=== PATIENT | male | born 1925 | race Caucasian/White ===

== ENCOUNTER 2016-12-07 15:14 | Inpatient (IN) ==
--- NOTE | 2016-12-07 23:54 | Hospitalist History & Physical ---
Assessment and Plan (1) Altered mental status Status: Acute Current Visit: Yes (2) Bacterial meningitis Status: Acute Current Visit: Yes (3) Parkinsons disease Status: Acute Current Visit: Yes (4) Intraventricular hemorrhage Status: Acute Assessment and plan: My plan for this patient will be admitting him to our service. I will continue IV antibiotics as started by [facility]. He was on ampicillin cefepime and vancomycin. We need to get the culture results back from [facility]. We will continue tube feeds. Patient is a DNR. The wants to give him additional more time to see if he can recover he has not spoken or made any meaningful response in 3 days. Current Visit: No History of Present Illness Chief complaint: Transfer from [facility] History of present illness: Mr. Lopez is a 89 year old male with past medical history significant for hypertension and Parkinson's disease was his normal state of health till several days ago. Apparently patient failed did hit his head. They did not seek medical attention he did not seem to have any deficits. He followed up with his primary care provider Dr. Richey. She thought that he was having symptoms of the hydration recommended he come over to our hospital for further evaluation. Upon have an initial CT scan it was shown that he had a small intraventricular hemorrhage. He was subsequently transferred to [facility] for further evaluation. Patient was sent from to [facility] from our emergency room. They are neurosurgery evaluated him and did not see a surgical intervention necessary. He started spiking a fever and mentally he decompensated. He has not spoken a word in 3 days. Per review of the records it was sent with the patient they felt that he had bacterial meningitis. They were treating him with antibiotics and his white count was coming down and his fever was defervescing. The imaging reports indicate that he he had a CT scan of his chest that showed no signs of consolidation or pneumonia CT scan of his head showed no outside changes. He had a EEG that showed mild cerebral dysfunction without electric form discharges his CSF stain showed many white blood cells but no organism I do not have a cell count from his LP. They put him on amp penicillin cefepime and vancomycin. The records indicates that his cryptococcal antigen was negative and his HSV PCR was negative they felt that his altered mental status was likely secondary to his bacterial encephalopathy. His mri with contrast showed no sequela of meningitis or encephalitis patient is a DNR and I confirmed this with his . Patient was accepted his transfer from [facility] as a convenience for his family. Home Medications Medication Instructions Recorded Confirmed Type Aspirin [Ecotrin] 81 mg PO DAILY 11/30/16 11/30/16 History Carbidopa/Levodopa 25-100 [Sinemet 2 tablet PO TID 11/30/16 11/30/16 History 25-100] Finasteride 5 mg PO DAILY 11/30/16 11/30/16 History Folic Acid Tab 0.4 mg PO DAILY 11/30/16 11/30/16 History Timolol 0.5% Oph Soln [Timoptic 1 drop BOTH EYES BID 11/30/16 11/30/16 History 0.5%] hydroCHLOROthiazide 12.5 mg PO DAILY 11/30/16 11/30/16 History [Hydrochlorothiazide] Medical,Surgical,& Family Hx - Medical History Cardio: History of: Hypertension Neurology: History of: Dementia, Parkinson's Disease, TIA HEENT: History of: Ear Problem, Eye Problem, Glaucoma Genitourinary: History of: Prostate Problems (Prostate Enlargement) - Surgical History Abdominal Surgeries: Surgical HX of: Cholecystectomy, Hernia Repair - Family History Family History: Reports;: Family Cancer, Family Heart Disease, Family Hypertension - Social History Smoking Status: Never smoker Frequency of Alcohol Use: None Type of Drug Use: None ROS unobtainable: due to mental status Exam - Constitutional Vitals: Period Temp Pulse Resp BP Sys/Dozier Pulse Ox Last 24 Hr 20-20 General appearance: normal weight - Head Head exam: Present: normal inspection - Eye Pupils: Present: NAEDR (Sluggish) - ENT ENT exam: Present: normal exam - Neck Neck exam: Present: normal inspection - Respiratory Respiratory exam: Present: clear to auscultation bilaterally - Cardiovascular Cardiovascular exam: Present: regular rate and rhythm - GI/Abdominal GI/Abdominal exam: Present: normal bowel sounds - Extremities Exam Extremities exam: Present: normal inspection - Back Exam Back exam: Present: normal inspection - Neurological Exam Neurological exam: Present: altered - Skin Skin exam: Present: normal color Results - Labs Labs: Labs from [facility] displayed white blood cell count 13.1 hemoglobin 13.9 hematocrit 40.2 platelets 219 sodium 140 potassium 3.1 chloride 97 bicarb 28 BUN 18 calcium 8.5 glucose 150 B12 greater than 2000 magnesium 1.6 phosphorus 2.0
[2016-12-08] MEDS: AMPICILLIN INJ 2,000 MG in SODIUM CHLORIDE 0.9% 100 ML IV SCH ×4 (01:42→18:35)
[2016-12-08] MEDS ORDERED: CEFEPIME 2,000 MG in SODIUM CHLORIDE 0.9% 100 ML IV SCH ×2 (02:00→14:00)
[2016-12-08] MEDS: VANCOMYCIN INJ 1,000 MG in SODIUM CHLORIDE 0.9% 250 ML IV SCH ×2 (03:55→21:12)
[2016-12-08 05:29] LABS: Basophils # 0.1 10*3/uL (0.0-0.2); Basophils % 0.7 % (0.0-0.8); Eosinophils # 0.7 10*3/uL (0.0-0.87); Eosinophils % 5.8 % (0.00-10.9); Hematocrit 39.4 VOL% (42.0-52.0); Hemoglobin 14.1 GM/DL (14.0-18.0); Immature Granulocytes % 0.5 %; Immature Granulocytes Absolute 0.06 #; Lymphocytes # 1.6 10*3/uL (1.4-4.0); Lymphocytes % 13.7 % (21.2-54.2); Mean Corpuscular HGB Conc 35.8 GM/DL (32-36); Mean Corpuscular Hemoglobin 32 PG (27-34); Mean Corpuscular Volume 89.3 FL (87-102); Mean Platelet Volume 9.3 FL (9.6-12.0); Monocytes # 1.1 10*3/uL (0.11-0.8); Monocytes % 9.5 % (1.7-12.7); Neutrophils % 69.8 % (38.7-73.9); Platelet Count 243 T/CUMM (130-400); Red Blood Count 4.41 MC/CUMM (3.8-5.5); White Blood Count 11.5 T/CUMM (4-12)
[2016-12-08 06:14] LABS: Albumin 2.7 G/DL (3.4-5.0); Bilirubin,Total 0.8 MG/DL (0.2-1.0); Calcium 8.4 MG/DL (8.5-10.1); Osmolality,Calculated 275.8 MOS/KG (273-304); Potassium 3.3 MMOL/L (3.5-5.1); Total Protein 5.3 G/DL (6.4-8.3)
--- NOTE | 2016-12-08 06:45 | CT Report ---
CT head/brain wo con Indication: AMS Comparison: CT brain dated November 30, 2016 Technique: Multiple axial tomographic images of the brain were obtained without the use of intravenous contrast. Findings: Moderate global volume loss present. Moderate periventricular and subcortical hypoattenuation noted which is nonspecific but consistent with chronic microvascular ischemic change. Demyelinating process and vasculitis less likely considerations. Moderate prominence of the bilateral lateral ventricles appears unchanged. There is evolution of acute hemorrhage demonstrated within the bilateral occipital horns on prior exam with minimal remaining within the left occipital horn. No new area of hemorrhage is visualized. Midline structures are nondisplaced. Small probable mucous retention cyst within the right maxillary sinus. Patchy opacification of ethmoid air cells. Left mastoid effusion present. IMPRESSION: Moderate prominence of the bilateral lateral ventricles appears unchanged. There is evolution of acute hemorrhage demonstrated within the bilateral occipital horns on prior exam with minimal remaining within the left occipital horn. No new area of hemorrhage is visualized. Probable chronic microvascular ischemic change and volume loss. There is paranasal sinus disease and left mastoid effusion. Clinically correlate for mastoiditis. The CT exam was performed using one or more of the following dose reduction techniques: Automated exposure control, adjustment of the mA and/or kV according to patient size, or use of iterative reconstruction technique. PROCEDURE INTERPRETED AT [facility] DEPARTMENT OF RADIOLOGY Final Report Signed by: Dr Mohsen Henson
--- NOTE | 2016-12-08 07:34 | XRay Report ---
XR chest 1V Indication: Fever Comparison: Chest x-ray dated November 30, 2016 Technique: Single frontal view of the chest. Findings: The cardiomediastinal silhouette is stable in configuration. Heart remains mildly prominent. Aorta appears somewhat tortuous. Small pulmonary opacities again demonstrated, most significant within the left perihilar region. Recommend follow-up imaging to document resolution. Suspect small left pleural fluid. Visualized osseous and surrounding soft tissue structures appear grossly unchanged. Weighted enteric tube tip projects over the proximal stomach. IMPRESSION: No significant interval change. PROCEDURE INTERPRETED AT [facility] DEPARTMENT OF RADIOLOGY Final Report Signed by: Dr Mohsen Henson
[2016-12-08] MEDS ORDERED: hydroCHLOROthiazide 12.5 MG CAPSULE PO SCH (09:00)
[2016-12-08] MEDS: ASPIRIN EC 81 MG TABLET PO SCH (11:55)
[2016-12-08] MEDS: CARBIDOPA/LEVODOPA 25-100 MG TABLET PO SCH ×3 (11:55→21:18)
[2016-12-08] MEDS: TIMOLOL 0.5% OPH SOLN 5 ML BOTTLE BOTH EYES SCH ×2 (11:58→21:17)
--- NOTE | 2016-12-08 12:15 | Infectious Disease Consult ---
Assessment and Plan (1) Bacterial meningitis Status: Acute Assessment and plan: This infection is culture negative. According to the records HSV PCR was negative. Recommendations: 1. I think it might have been an error in ordering cefepime rather than ceftriaxone [the cefepime dose is also smaller than it should be for [employer] infection]. I am going to stop the cefepime and put the patient on ceftriaxone 2 g IV every 12 hours 2. Agree with ampicillin 3. Agree with vancomycin 4. Apparently be to treat the patient empirically for bacterial meningitis for 14 days; tells me he is been on antibiotics for the past 7 days and therefore he will continue for 7 more days. 5. Monitor renal function closely on the vancomycin Thank you very much for the consult. Will follow. Discussed with at bedside Current Visit: Yes (2) Parkinsons disease Status: Acute Current Visit: Yes History of Present Illness Chief complaint: Meningitis History of present illness: History obtained from the patient's and also from review of his records including those from [facility]. Mr. Lopez is a 89 year old male who was at his baseline state of health until about a week ago when he fell at home. Mental state worsened and so he was taken to the hospital. Imaging studies intraventricular hemorrhage and so she was transferred to [facility] for consideration of neurosurgery. He was felt not to require surgery but they did a lumbar puncture and the spinal fluid was quite abnormal with significant amount of white blood cells 90% of which were neutrophils. The CSF culture was negative however the patient was treated empirically for bacterial meningitis with antibiotics including ampicillin, cefepime, and vancomycin. I do not see in the records that he was seen by infectious diseases. The patient was transferred to our hospital yesterday in order to be closer to home. The patient has not shown any improvement and in fact has worsened over the past few days as he is now nonverbal and essentially completely unresponsive. He has not had any fever recently. The patient's was seen by palliative care physician in [place] and is considering hospice however she decided that she wanted to give the patient developed chance of clearing infection to see if his mental state will improve and so she has decided to continue antibiotic therapy and also feeding. I am asked to assist with management. Home Medications Medication Instructions Recorded Confirmed Type Aspirin [Ecotrin] 81 mg PO DAILY 11/30/16 12/07/16 History Carbidopa/Levodopa 25-100 [Sinemet 2 tablet PO TID 11/30/16 12/07/16 History 25-100] Finasteride 5 mg PO DAILY 11/30/16 12/07/16 History Folic Acid Tab 0.4 mg PO DAILY 11/30/16 12/07/16 History Timolol 0.5% Oph Soln [Timoptic 1 drop BOTH EYES BID 11/30/16 12/07/16 History 0.5%] hydroCHLOROthiazide 12.5 mg PO DAILY 11/30/16 12/07/16 History [Hydrochlorothiazide] Travoprost 0.004% Oph Soln 1 drop BOTH EYES BEDTIME 12/07/16 12/07/16 History [Travatan Z] Allergies Allergy/AdvReac Type Severity Reaction Status Date / Time Sulfa (Sulfonamide AdvReac Verified 12/07/16 23:59 Antibiotics) ROS unobtainable: due to mental status Medical,Surgical,& Family Hx - Medical History Cardio: History of: Hypertension Neurology: History of: Dementia, Parkinson's Disease, TIA HEENT: History of: Ear Problem, Eye Problem, Glaucoma Genitourinary: History of: Prostate Problems (Prostate Enlargement) - Surgical History Abdominal Surgeries: Surgical HX of: Cholecystectomy, Hernia Repair - Family History Family History: Reports;: Family Cancer, Family Heart Disease, Family Hypertension - Social History Smoking Status: Never smoker Frequency of Alcohol Use: None Type of Drug Use: None Infectious Disease Exam H&P - Constitutional Vitals: Vital Signs Temp Pulse Resp BP Pulse Ox 97.8 F 74 18 167/77 94 L 12/08/16 11:45 12/08/16 11:45 12/08/16 11:45 12/08/16 11:45 12/08/16 11:45 Intake and Output 12/07/16 12/08/16 12/08/16 23:59 07:59 15:59 Intake Total 200 / 200 100 / 100 Output Total 1000 / 1000 Balance -800 / -800 100 / 100 Intake: IV 200 / 200 100 / 100 Ampicillin Inj 2,000 mg 100 / 100 100 / 100 In Ns 100 ml @ 200 mls/hr IV Q6H [facility] Rx#: [id number] Maxipime 2,000 mg In Ns 100 / 100 100 ml @ 200 mls/hr IV Q12H [facility] Rx#:[id number] Output: Urine 1000 / 1000 Other: Voiding Method Indwelling Catheter Indwelling Catheter # Bowel Movements 1 2 Weight 60.963 kg Exam: General: Patient unresponsive but appeared comfortable in the bed HEENT: Mucous membranes pink, anicteric acyanotic, NADER, mouth very dry Neck: A bit stiff but he is generally hypertonic, no thyroid gland enlargement Respiratory system: Breath sounds vesicular, no crepitations or wheezes Cardiovascular: Normal S1 and S2, no murmurs appreciated Abdomen: Normal bowel sounds, soft nontender throughout, no organomegaly or mass Genitourinary: No suprapubic pain or bladder distention Extremities: no edema Skin: No rash Reports - Labs CBC & BMP: 12/08/16 05:10 12/08/16 05:10 Labs: Laboratory Results - last 24 hr 12/08/16 12/08/16 05:10 05:10 WBC 11.5 RBC 4.41 Hgb 14.1 Hct 39.4 L MCV 89.3 MCH 32 MCHC 35.8 RDW 12.0 Plt Count 243 MPV 9.3 L Neut % (Auto) 69.8 Lymph % (Auto) 13.7 L Bradley % (Auto) 9.5 Eos % (Auto) 5.8 Baso % (Auto) 0.7 Neut # (Auto) 8.0 H Lymph # (Auto) 1.6 Bradley # (Auto) 1.1 H Eos # (Auto) 0.7 Baso # (Auto) 0.1 Immature Gran % 0.5 Nucleated RBC % 0.0 Immature Gran # 0.06 Nucleated RBCs # 0.00 Immature Plt Fraction 0.0 Sodium 137 Potassium 3.3 L Chloride 98 Carbon Dioxide 33 H Anion Gap 9.3 BUN 18 Creatinine 0.60 L GFR Calculation 87 BUN/Creatinine Ratio 30.00 H Glucose 108 H Calculated Osmolality 275.8 Calcium 8.4 L Total Bilirubin 0.80 AST 57 H ALT 34 Alkaline Phosphatase 87 Total Protein 5.3 L Albumin 2.7 L Globulin 2.6 Albumin/Globulin Ratio 1.0 L - Diagnostic Findings Procedure: Chest x-ray: report reviewed by me, CT: report reviewed by me (CT brain results reviewed)
[2016-12-08] MEDS: INSULIN REGULAR 100 UNIT/ML SUBCUT SCH ×2 (12:22→18:34)
--- NOTE | 2016-12-08 12:58 | Hospitalist Progress Note ---
Assessment and Plan (1) Altered mental status Status: Acute Assessment and plan: This most likely multi factorial.Prognosis is poor. wants Hospice care Current Visit: Yes (2) Bacterial meningitis Status: Acute Assessment and plan: Follow ID's recommendations. Current Visit: Yes (3) Parkinsons disease Status: Acute Assessment and plan: continue home meds Current Visit: Yes (4) Intraventricular hemorrhage Status: Acute Assessment and plan: Prognosis is poor. Hospice consult. Current Visit: Yes (5) Hypokalemia Status: Acute Assessment and plan: will replete. Current Visit: Yes (6) HTN (hypertension) Status: Acute Assessment and plan: will resume home meds Current Visit: Yes Hospitalist: Subjective Interval history: Patient seen. He is minimally responsive.Prognosis is poor. has agreed to Hospice care. Exam - Constitutional Vitals: Period Temp Pulse Resp BP Sys/Dozier Pulse Ox Last 24 Hr 96.6 F-98.4 F 70-75 18-22 163-178/77-84 93-96 General appearance: mild distress, other (minimally responsive) - Head Head exam: Present: normal inspection - Respiratory Respiratory exam: Present: clear to auscultation bilaterally - Cardiovascular Cardiovascular exam: Present: regular rate and rhythm - GI/Abdominal GI/Abdominal exam: Present: normal bowel sounds - Extremities Exam Extremities exam: Present: normal inspection - Neurological Exam Neurological exam: Present: other (minimally unresponsive) Results - Labs CBC & BMP: 12/08/16 05:10 12/08/16 05:10 Lab Results: I have reviewed the past 24 hour labs
[2016-12-08] MEDS ORDERED: POTASSIUM CHLORIDE 20 MEQ/15 ML UDCUP PER TUBE PRN (13:03)
[2016-12-08] MEDS: cefTRIAXone 2,000 MG in SODIUM CHLORIDE 0.9% 100 ML IV SCH (14:54)
[2016-12-08] MEDS ORDERED: TRAVOPROST 0.004% OPH SOLN 2.5 ML BOTTLE BOTH EYES SCH (21:00)
[2016-12-09] MEDS: cefTRIAXone 2,000 MG in SODIUM CHLORIDE 0.9% 100 ML IV SCH ×2 (00:38→13:15)
[2016-12-09] MEDS: INSULIN REGULAR 100 UNIT/ML SUBCUT SCH ×3 (00:58→13:01)
[2016-12-09] MEDS: AMPICILLIN INJ 2,000 MG in SODIUM CHLORIDE 0.9% 100 ML IV SCH ×3 (01:30→13:16)
[2016-12-09 07:58] LABS: Calcium 8.3 MG/DL (8.5-10.1); Magnesium 1.8 MG/DL (1.8-2.4); Osmolality,Calculated 280.7 MOS/KG (273-304); Phosphorous 2.1 MG/DL (2.5-4.9); Potassium 3.2 MMOL/L (3.5-5.1); Prealbumin 16.1 MG/DL (20-40)
--- NOTE | 2016-12-09 08:17 | Discharge Summary ---
<Marko La - Last Filed: 12/09/16 07:58> Hospital Course - Hospital Course Hospital Course: Mr. Lopez is a 89-year-old male with past medical history significant for hypertension and Parkinson's disease who was transferred back to [facility] after neurosurgery consult at [facility] did not find any surgical intervention necessary. At [facility], the patient was treated empirically for bacterial meningitis with little to no improvement. In fact the patient seemed to be worsening and has since become essentially unresponsive. He was transferred back to [place] and he was admitted with altered mental status, bacterial meningitis, Parkinson's disease and intraventricular hemorrhage. Infectious disease was consulted for suspected bacterial meningitis even though the CSF cultures were negative. She decided to start the patient on ceftriaxone 2 g IV every 12 hours with continued monitoring. Prognosis for this patient is poor. The patient's has agreed to hospice care and, at this time, the patient has reached maximum benefit from hospitalization and is stable for discharge. He will be discharged home with hospice through [facility]. Family was told that patient couldnt go home with a duboff tube so they were contemplated a peg tube placement so GI was consulted. They have now decided against it and wishes to leave today.Prognosis is poor. - Time spent with patient Time with patient DS: Greater than 30 minutes Discharge Plan - Discharge Data Disposition: Hospice - Home - Discharge Medications New Zinc Oxide 16% Paste [Anant's Butt Paste] 1 applic TOP BID applic Continue Folic Acid Tab 0.4 mg PO DAILY hydroCHLOROthiazide [Hydrochlorothiazide] 12.5 mg PO DAILY Timolol 0.5% Oph Soln [Timoptic 0.5%] 1 drop BOTH EYES BID Carbidopa/Levodopa 25-100 [Sinemet 25-100] 2 tablet PO TID Aspirin [Ecotrin] 81 mg PO DAILY Travoprost 0.004% Oph Soln [Travatan Z] 1 drop BOTH EYES BEDTIME Finasteride 5 mg PO DAILY - Follow Up or Referral - Forms/Instructions Exam - Constitutional Vitals: Period Temp Pulse Resp BP Sys/Dozier Pulse Ox Last 24 Hr 97.1 F-99.1 F 67-78 12-26 118-150/57-68 93-94 Discharge Results Procedures and tests throughout hospitalization: Pending Orders 12/09/16 14:33 Vancomycin,Trough Timed Labs on day of discharge: Labs from last 24 hours 12/09/16 12/09/16 12/09/16 11:04 07:03 06:59 Sodium 138 Potassium 3.2 L Chloride 99 Carbon Dioxide 35 H Anion Gap 7.2 BUN 20 H Creatinine 0.70 GFR Calculation 82 BUN/Creatinine Ratio 28.00 H Glucose 147 H POC Glucose 81 163 H Calculated Osmolality 280.7 Calcium 8.3 L Phosphorus 2.1 L Magnesium 1.8 Prealbumin 16.1 L 12/09/16 12/08/16 00:16 18:12 Sodium Potassium Chloride Carbon Dioxide Anion Gap BUN Creatinine GFR Calculation BUN/Creatinine Ratio Glucose POC Glucose 190 H 180 H Calculated Osmolality Calcium Phosphorus Magnesium Prealbumin DS: Provider Date of admission: 12/07/16 19:40 Primary care physician: . No PCP Attending physician on admission: Shelby Solis MD Consults: 12/07/16 20:54 Consult to Case Mgmt/Social Srvs [CONS] Routine Reason for Case Mgmt/Social Srvs: Discharge Planning 12/07/16 23:59 Consult to Dietitian [CONS] Routine Reason for Dietitian: TF-Initiate/Manage 12/08/16 00:06 Consult to Pharmacy [CONS] Routine Reason for Pharmacy Consult: Dose/Manage Vancomycin 12/08/16 00:07 Consult to Physician [CONS] Routine Comment: [facility] Consulting Provider: Joan Luciano 12/08/16 10:14 Consult to Case Mgmt/Social Srvs [CONS] Routine Reason for Case Mgmt/Social Srvs: Hospice Referral 12/09/16 11:07 Consult to Physician [CONS] Routine Comment: peg placement Consulting Provider: Juan A Nair Consult Notification Comment: emir cheney while rounding Discharging clinician: Marko KEENAN Expected date of discharge: 12/09/16 <Shelby Solis - Last Filed: 12/09/16 15:41> Hospital Course - Time spent with patient Time with patient DS: Greater than 30 minutes (Time spent greater than 35mins) Diagnosis - Discharge Diagnosis (1) Altered mental status Status: Acute (2) Bacterial meningitis Status: Acute (3) Parkinsons disease Status: Acute (4) Intraventricular hemorrhage Status: Acute (5) Hypokalemia Status: Acute (6) HTN (hypertension) Status: Acute Discharge Plan - Discharge Data Condition at Discharge: Guarded Discharge Diet: advance to your usual diet Exam - Constitutional General appearance: no acute distress, other (minimally responsive) - Head Head exam: Present: normal inspection - Respiratory Respiratory exam: Present: clear to auscultation bilaterally - Cardiovascular Cardiovascular exam: Present: regular rate and rhythm - GI/Abdominal GI/Abdominal exam: Present: normal bowel sounds - Extremities Exam Extremities exam: Present: normal inspection
[2016-12-09] MEDS: TIMOLOL 0.5% OPH SOLN 5 ML BOTTLE BOTH EYES SCH (08:46)
[2016-12-09] MEDS: ASPIRIN EC 81 MG TABLET PO SCH (08:46)
[2016-12-09] MEDS: CARBIDOPA/LEVODOPA 25-100 MG TABLET PO SCH ×2 (08:51→16:12)
[2016-12-09] MEDS ORDERED: hydroCHLOROthiazide 12.5 MG CAPSULE PO SCH (09:00)
--- NOTE | 2016-12-09 11:44 | Gastrointestinal Consult Note ---
Assessment and Plan (1) Altered mental status Status: Acute Assessment and plan: 12/09-history of Parkinson's disease with recent diagnosis of bacterial meningitis now unresponsive and requiring NG tube feedings. Plans noted for patient to return home on hospice care with need for alternative means of receiving nutrition. Discussed PEG tube placement, risk, complications and procedure with family. They are to continue discussion and make a decision possibly this afternoon. Plan an addendum to followed by Dr. Nair. Current Visit: Yes History of Present Illness Chief complaint: Altered mental status History of present illness: Mr. Lopez is a 89 year old male who was admitted to the hospital on 12/07 following transfer from [facility] in [place]. Patient has a prior history of hypertension and Parkinson's disease. He reportedly was in his normal state of health until several days ago when he fell and hit his head. Several days went by after the fall in which she did not seek medical attention immediately due to no injury or deficits were noted. He eventually followed up with Dr. Richey and at that time was felt to be dehydrated and sent to our emergency room for further evaluation. Upon arrival he was found to have a small intraventricular hemorrhage on CT scan and was transferred to [facility]. He was evaluated by neurosurgery there and due to no surgical intervention necessary he was transferred back to our facility per family's request. Prior to his transfer, patient began to run fever and had changes in his mental status therefore he had further testing done and was found at that time and was felt to have bacterial meningitis. It is noted that he had cryptococcal antigen done which was negative as well as a negative HSV PCR and an MRI with contrast that showed no signs of meningitis or encephalitis. At this time, patient remains minimally responsive, nonverbal and unresponsive to commands Dr. Samson is following and treating empirically for bacterial meningitis at this time. The family is wishing to take him home on hospice care however at this time he is requiring NG tube feedings. They are aware that he may be difficult to manage at home without other means of receiving nutrition, fluids and medications. Patient's has reservations regarding placement of the feeding tube due to experiences with her mother however discussed procedure, risks, and complications with patient's and daughter at bedside. At this time, they do not agree with placement of the PEG tube however noted that this is potentially the only way to have him return home on hospice care. They are going to discuss this further amongst themselves and make a decision possibly later today. Note prior abdominal surgery history includes cholecystectomy and hernia repair. Patient has had prior EGDs done by Dr. Nair with last known one in 2013 with findings of esophageal stricture and dilation. Home Medications Medication Instructions Recorded Confirmed Type Aspirin [Ecotrin] 81 mg PO DAILY 11/30/16 12/07/16 History Carbidopa/Levodopa 25-100 [Sinemet 2 tablet PO TID 11/30/16 12/07/16 History 25-100] Finasteride 5 mg PO DAILY 11/30/16 12/07/16 History Folic Acid Tab 0.4 mg PO DAILY 11/30/16 12/07/16 History Timolol 0.5% Oph Soln [Timoptic 1 drop BOTH EYES BID 11/30/16 12/07/16 History 0.5%] hydroCHLOROthiazide 12.5 mg PO DAILY 11/30/16 12/07/16 History [Hydrochlorothiazide] Travoprost 0.004% Oph Soln 1 drop BOTH EYES BEDTIME 12/07/16 12/07/16 History [Travatan Z] Allergies Allergy/AdvReac Type Severity Reaction Status Date / Time Sulfa (Sulfonamide AdvReac Verified 12/07/16 23:59 Antibiotics) Medical,Surgical,& Family Hx - Medical History Cardio: History of: Hypertension Neurology: History of: Dementia, Parkinson's Disease, TIA HEENT: History of: Ear Problem, Eye Problem, Glaucoma Genitourinary: History of: Prostate Problems (Prostate Enlargement) - Surgical History Abdominal Surgeries: Surgical HX of: Cholecystectomy, Hernia Repair - Family History Family History: Reports;: Family Cancer, Family Heart Disease, Family Hypertension - Social History Smoking Status: Never smoker Frequency of Alcohol Use: None Type of Drug Use: None ROS unobtainable: due to mental status Exam - Constitutional Vitals: Period Temp Pulse Resp BP Sys/Dozier Pulse Ox Last 24 Hr 97.1 F-99.1 F 67-78 12-26 118-167/57-77 93-94 General appearance: normal weight, no acute distress - Head Head exam: Present: normal inspection, normocephalic - Eye Eye exam: Present: other (Lids and conjunctive are unremarkable). Absent: scleral icterus - ENT ENT exam: Present: normal exam, normal oropharynx - Neck Neck exam: Present: normal inspection - Respiratory Respiratory exam: Present: clear to auscultation bilaterally. Absent: rales, rhonchi, wheezes - Cardiovascular Cardiovascular exam: Present: regular rate and rhythm. Absent: diastolic murmur , JVD, systolic murmur - GI/Abdominal GI/Abdominal exam: Present: normal bowel sounds, soft. Absent: ascites, distended, mass, organomegaly, tenderness - Extremities Exam Extremities exam: Present: normal inspection, full ROM - Back Exam Back exam: Present: normal inspection - Neurological Exam Neurological exam: Present: altered - Psychiatric Psychiatric exam: Present: other - Skin Skin exam: Present: normal color, warm, dry Results - Labs CBC & BMP: 12/08/16 05:10 12/09/16 06:59 Lab Results: I have reviewed the past 24 hour labs
[2016-12-09] MEDS ORDERED: ZINC OXIDE 16% PASTE 57 GM TUBE TOP SCH (14:00)
[2016-12-09] MEDS: VANCOMYCIN INJ 1,000 MG in SODIUM CHLORIDE 0.9% 250 ML IV SCH (16:12)
--- NOTE | 2016-12-09 16:20 | Infectious Disease Progress ---
Assessment and Plan (1) Bacterial meningitis Status: Acute Assessment and plan: The patient's was very torn about what to do for her in terms of hospice and how much treatment to give, etc. I had a long discussion with her about this and her daughter was also present. There are nephew Dr. Fraser an OB/ STOCK MANAGER at [facility] had suggested that they stop everything including antibiotics, feeding etc. I told the patient's that I agreed with this and explained to her about the fact that at the end of life people tend to not be hungry. She requested that the antibiotics be stopped and I have discontinued them. We will sign off. Current Visit: Yes (2) Parkinsons disease Status: Acute Current Visit: Yes Infectious Disease - PN: Subj Interval history: Patient remains mostly unresponsive. He has not had any fever. He was supposed to go home today on hospice but the hospice nurse suggested to the that the patient needed a PEG tube. He has been getting feeds via an NG tube. Infectious Disease Exam (PN) - Constitutional Vitals: Temp Pulse Resp BP Pulse Ox 98.3 F 67 12 134/63 94 L 12/09/16 12:00 12/09/16 12:00 12/09/16 15:41 12/09/16 12:00 12/09/16 12:00 General appearance: no acute distress, other (minimally responsive) Exam: General appearance: Unresponsive - Extremities Exam Extremities exam: no edema - Skin Skin exam: no rash Results - Labs CBC & BMP: 12/08/16 05:10 12/09/16 06:59 Lab Results: I have reviewed the past 24 hour labs
[2016-12-09 16:34] VITALS: BP 126/57
--- NOTE | 2016-12-15 11:15 | Physician Query Form ---
CLICK EDIT DOCUMENT TO SELECT QUERY ANSWER --> OK --> SIGN Radha Gutierrez RN Clinical Traffic Incident Management Manager W) [phone] (f) [phone] [email or web address] PROVIDERS: Make your selection(s) from the choices in EACH section by typing an "x" and enter comments in the comment section. Please use your independent medical judgment in providing your response. This request does not imply that any particular answer is desired or expected. CLINICAL INDICATORS: (Providers should not edit this section) The below diagnosis was documented in the record, but is not consistently noted in subsequent documentation. Diagnosis: Bacterial encephalopathy Pt. admitted with acute bacterial meningitis. Based on documentation of "acute altered mental status, felt that his altered mental status was likely secondary to his bacterial encephalopathy". Pt. treated with IV cefepime and vancomycin. CT scan of brain done to evaluate. Please clarify the following: (x ) The above diagnosis was monitored, evaluated, and/or treated and is a confirmed diagnosis ( ) The above diagnosis was ruled out ( ) Other, please specify: ( ) Clinically unable to determine COMMENTS: PLEASE ALSO DOCUMENT RESPONSE IN PROGRESS NOTES AND/OR DISCHARGE SUMMARY Use of terms such as suspected, likely, or probable (associated with a specific diagnosis that is being evaluated, monitored, or treated as if it exists) are acceptable and can be restated in the discharge summary if not ruled out. MTDD
== END 2016-12-09 17:45 | disposition hospice, home (50) | DRG 94 ==
LOC: N.2E 19:40
PROVIDERS: ADMIT Internal Medicine; ATTEND Internal Medicine

== ENCOUNTER 2017-01-22 14:24 | Observation (INO) ==
--- NOTE | 2017-01-22 14:46 | Emergency Department Note ---
Arrival - Arrival Chief Complaint: Fall Stated Complaint: FAll ED Nursing Triage Note: c/o fall around 1300 today hit the back of head on metal bed frame laceration to the back of head bleeding controlled family states pt has been confused x's 2 days hasnt been acting himself for the past 2 days Mode of Arrival: Stretcher Limitations: Altered Mental Status Source: Family Time Seen by Provider: 01/22/17 14:36 - History of Present Illness HPI Narrative: This is an 89-year-old white male who is accompanied by his and daughters who states that the patient has been restless for most of last night, got up today to walk without his walker fell and hit the back of his head on a metal bed frame. The family states that the patient has been confused but is been more so over the past couple of days and is "not his normal self." The family states that he has a history of falls and had one approximately 6-8 weeks ago and had to be transferred to [facility] for intracranial bleeding. They deny any fevers, or any other problems today. Onset (ago): hour(s) (1300 today) Allergies/Adverse Reactions: Allergies Allergy/AdvReac Type Severity Reaction Status Date / Time Sulfa (Sulfonamide AdvReac Verified 12/07/16 23:59 Antibiotics) Home Medications: Home Medications Medication Instructions Recorded Confirmed Type Aspirin [Ecotrin] 81 mg PO DAILY 11/30/16 12/07/16 History Carbidopa/Levodopa 25-100 [Sinemet 2 tablet PO TID 11/30/16 12/07/16 History 25-100] Finasteride 5 mg PO DAILY 11/30/16 12/07/16 History Folic Acid Tab 0.4 mg PO DAILY 11/30/16 12/07/16 History Timolol 0.5% Oph Soln [Timoptic 1 drop BOTH EYES BID 11/30/16 12/07/16 History 0.5%] hydroCHLOROthiazide 12.5 mg PO DAILY 11/30/16 12/07/16 History [Hydrochlorothiazide] Travoprost 0.004% Oph Soln 1 drop BOTH EYES BEDTIME 12/07/16 12/07/16 History [Travatan Z] Zinc Oxide 16% Paste [Anant's 1 applic TOP BID applic 12/09/16 Rx Butt Paste] Review of System - Review of System 12 point system: reviewed and no additional remarkable complaints except as stated - Review of System Constitutional: Present: as per HPI. Absent: fever Skin: Present: as per HPI (Laceration) Medical,Surgical,& Family Hx - Medical History Cardio: History of: Hypertension Neurology: History of: Dementia, Parkinson's Disease, TIA HEENT: History of: Ear Problem, Eye Problem, Glaucoma Genitourinary: History of: Prostate Problems (Prostate Enlargement) - Surgical History Abdominal Surgeries: Surgical HX of: Cholecystectomy, Hernia Repair - Family History Family History: Reports;: Family Cancer, Family Heart Disease, Family Hypertension - Social History Smoking Status: Never smoker Exam Physical Examination: - General General appearance: [The patient is awake and does not appear to be in acute distress, but is not answering questions.] - Head Head exam: [Present: normocephalic, there is an approximately 2 cm irregular skin tear noted to the occipital area of the scalp. Bleeding is controlled at present] - Eye Eye exam: [Present: normal appearance, PERRL, EOMI] - ENT ENT exam: [Present: normal exam, normal oropharynx, mucous membranes moist, TM' s normal bilaterally, normal external ear exam] - Neck Neck exam: [Present: normal inspection, full ROM, trachea midline] - Chest Chest inspection: [Present: normal inspection, symmetric chest wall rise] - Respiratory Respiratory exam: [Present: normal lung sounds bilaterally] - Cardiovascular Cardiovascular exam: [Present: regular rate, normal rhythm, normal heart sounds] - Abdominal Exam Abdominal exam: [Present: soft, normal bowel sounds] - Extremities Exam Extremities exam: [Present: normal inspection, full ROM] - Back Exam Back exam: [Present: normal inspection, full ROM] - Neurological Exam Neurological exam: [Present: Awake.] - Psychiatric Psychiatric exam: [Present: normal affect, normal mood] - Skin Skin exam: [Present: warm, dry, intact with the exception of a laceration on the head, normal color] Vital Signs: Vital Signs Temperature 97.4 F L 01/22/17 14:38 Pulse Rate 76 01/22/17 14:38 Respiratory Rate 20 01/22/17 14:38 Blood Pressure 171/71 01/22/17 14:38 O2 Sat by Pulse Oximetry 100 01/22/17 14:30 Course - Consultations Consultation #1: iKran in hospitalist services was notified, and they will see the patient down in nonurgent Time: 16:34 Consultation #2: Marko from hospitalist services is down to see the patient Time: 17:30 Results - Labs CBC & BMP: 01/22/17 14:41 01/22/17 14:41 Lab Results: I have reviewed the patients labs - Diagnostic Findings Procedure: CT: image reviewed by me, report reviewed by me (Head: No acute intracranial pathology noted. C-spine: Study is limited by motion, no obvious fractures or deformities noted) Disposition Clinical Impression: Fall, Altered mental status Case discussed with: patient's family Disposition: Still a Patient Condition: Stable
[2017-01-22 14:52] LABS: Basophils # 0.1 10*3/uL (0.0-0.2); Basophils % 0.4 % (0.0-0.8); Eosinophils # 1.5 10*3/uL (0.0-0.87); Hematocrit 44.1 VOL% (42.0-52.0); Hemoglobin 14.8 GM/DL (14.0-18.0); Immature Granulocytes % 0.2 %; Immature Granulocytes Absolute 0.03 #; Lymphocytes # 2.5 10*3/uL (1.4-4.0); Mean Corpuscular HGB Conc 33.6 GM/DL (32-36); Mean Corpuscular Hemoglobin 31 PG (27-34); Mean Platelet Volume 9.6 FL (9.6-12.0); Monocytes % 7.3 % (1.7-12.7); Neutrophils # 8.7 10*3/uL (1.4-7.4); Neutrophils % 63.1 % (38.7-73.9); Platelet Count 145 T/CUMM (130-400); Red Blood Count 4.74 MC/CUMM (3.8-5.5); Red Cell Distribution Width 13.2 % (9.3-17.3); White Blood Count 13.8 T/CUMM (4-12)
[2017-01-22 15:08] LABS: INR 1.1; PT Patient Result 12.2 SECS
--- NOTE | 2017-01-22 15:16 | CT Report ---
CT of the head without contrast. Indication: Head injury and pain. Comparison: December 08, 2016. There is significant streak artifact from dental hardware. The calvarium is intact. A partial opacification of the left mastoid air cells is again seen. There is heavy calcific plaque present within the intracranial internal carotid arteries. There is generalized prominence of the ventricles and sulci consistent with atrophy of aging. There is no mass effect, midline shift, or area of acute hemorrhage seen. There are prominent foci of low density within the periventricular white matter, likely related to chronic microvascular ischemia. No cortical infarcts are seen at this time. Impression: Diffuse atrophy and prominent chronic microvascular ischemic change. No evidence of acute intracranial injury. Persistent partial opacification of the left mastoid air cells. The CT exam was performed using one or more of the following dose reduction techniques: Automated exposure control, adjustment of the mA and/or kV according to patient size, or use of iterative reconstruction technique. PROCEDURE INTERPRETED AT [facility] DEPARTMENT OF RADIOLOGY Final Report Signed by: Dr. Giselle Acevedo
--- NOTE | 2017-01-22 15:24 | CT Report ---
CT of the cervical spine without contrast. Axial images were obtained with sagittal and coronal 2-D reconstructions. Indication: Injury with pain. Fall. There is significant limitation secondary to patient motion. The appearance of the craniovertebral junction is within normal limits. There is a slight grade 1 anterolisthesis of C3 on C4. There is an ivory vertebra of T2. There are mild superior endplate compression fractures of T1 and T3. Degenerative changes are noted at C2-C3, C3-C4, C4-C5, C5-C6, and C6-C7, with loss of disc space height, degenerative endplate change, anterior and posterior osteophyte formation and facet arthropathy. Atherosclerotic calcification is present within the intracranial internal carotid arteries. Impression: 1. There is marked limitation secondary to patient motion. Any subtle fracture would be easily obscured. 2. Mild superior endplate compression fractures of T1 and T3, age unknown. 3. T2 ivory vertebra. The differential is osteoblastic metastasis, Paget's disease, lymphoma, tuberculosis spondylitis, or previous radiation to this location. 4. Grade 1 anterolisthesis of the [address] exam was performed using one or more of the following dose reduction techniques: Automated exposure control, adjustment of the mA and/or kV according to patient size, or use of iterative reconstruction technique. PROCEDURE INTERPRETED AT [facility] DEPARTMENT OF RADIOLOGY Final Report Signed by: Dr. Giselle Acevedo
[2017-01-22] MEDS ORDERED: LORazepam 2 MG/1 ML VIAL ONE (15:26)
[2017-01-22 15:31] LABS: Calcium 9.1 MG/DL (8.5-10.1); Osmolality,Calculated 286.1 MOS/KG (273-304); Potassium 4.8 MMOL/L (3.5-5.1)
[2017-01-22] MEDS ORDERED: LORazepam 2 MG/1 ML VIAL IV STA ×2 (15:31→15:43)
[2017-01-22 17:01] LABS: Eosinophils 9 % (0-10); Hypochromasia 1+; Lymphocytes 16 % (20-55); Platelet Estimate Decreased; Segmented Neutrophils 75 % (50-85); Total Cells Counted 100
[2017-01-22 18:20] LABS: Apearance,Urine Slightly Hazy (Clear); Bilirubin,Urine Negative (Negative); Blood, Urine Large mg/dL (Negative); Glucose,Urine (UA) Negative (Negative); Hyaline Casts,Urine 6 /LPF (0-3); Ketones,Urine 5 mg/dL (Negative); Mucus,Urine Few /LPF (Occasional); Nitrite,Urine Negative (Negative); Protein,Urine Negative; RBC,Urine 378 /HPF (0-4); Squamous Epithelial Cell,Urine Occasional /HPF (0-10); Urine Color Yellow (Yellow); Urine Specific Gravity 1.013 (1.001-1.035); Urine Urobilinogen < 2.0 EU/DL (0.2-1.0); WBC,Urine 135 /HPF (0-6)
--- NOTE | 2017-01-22 18:51 | Hospitalist History & Physical ---
Assessment and Plan - Time spent with patient Time spent with patient: Greater than 30 minutes (1) Altered mental status Status: Acute Assessment and plan: This could be in part due to a UTI as well as parkinsonian dementia. Will continue to give the patient IV fluids for hydration, broad-spectrum antibiotics , and Seroquel for his dementia. After discussion with the family, it appears that the patient may be too far demented and becoming increasingly more and more agitated. I have discussed possibility of skilled nursing placement for the safety of both the patient and his family. The daughter feels as though the primary. Placement in a skilled nursing his findings. We will consult addiction social worker to assist with this. Current Visit: No (2) Dementia Status: Acute Current Visit: Yes (3) Parkinsons disease Status: Acute Current Visit: No (4) HTN (hypertension) Status: Acute Current Visit: No (5) Fall Status: Acute Current Visit: Yes History of Present Illness Chief complaint: AMS History of present illness: Mr. Lopez is a 89 year old male with a past medical history including Parkinson' s with dementia who presents to the ED today with complaints of laceration to the head s/p fall, severe agitation and altered mental status. The patient sustained a brain bleed approx 6 weeks ago s/p fall and was seen by a neurosurgeon in [place] with subsequent rehabilitation here in [place]. At the time of his brain injury, the patient was believed to be at risk for imminent and placed on hospice. He is now back at home with his and objectively stronger, however he has become increasingly difficult for her and his family to handle. The patient is still fairly weak and has sustained several falls lately, the last resulting in this current laceration to the posterior scalp. Patient does not require sutures. Head CT is negative for evidence of acute intracranial injury. On exam, patient is calmer after 1 mg of Ativan. He is verbal but incoherent in his speech. Per family, the patient does not appear to be in any pain. Lab work is significant for WBCs 13.8, BUN 23, creatinine 1.2. Urinalysis shows evidence of infection with cultures to follow. This case has been discussed with Robb Velazquez NP and Dr. Falcon, admitting physician, the patient will be admitted to the hospital medicine service for further evaluation and treatment. Home medications have been reviewed and reconciled. Home Medications Medication Instructions Recorded Confirmed Type Aspirin [Ecotrin] 81 mg PO DAILY 11/30/16 12/07/16 History Carbidopa/Levodopa 25-100 [Sinemet 2 tablet PO TID 11/30/16 12/07/16 History 25-100] Finasteride 5 mg PO DAILY 11/30/16 12/07/16 History Folic Acid Tab 0.4 mg PO DAILY 11/30/16 12/07/16 History Timolol 0.5% Oph Soln [Timoptic 1 drop BOTH EYES BID 11/30/16 12/07/16 History 0.5%] hydroCHLOROthiazide 12.5 mg PO DAILY 11/30/16 12/07/16 History [Hydrochlorothiazide] Travoprost 0.004% Oph Soln 1 drop BOTH EYES BEDTIME 12/07/16 12/07/16 History [Travatan Z] Zinc Oxide 16% Paste [Anant's 1 applic TOP BID applic 12/09/16 Rx Butt Paste] Allergies Allergy/AdvReac Type Severity Reaction Status Date / Time Sulfa (Sulfonamide AdvReac Verified 12/07/16 23:59 Antibiotics) Medical,Surgical,& Family Hx - Medical History Cardio: History of: Hypertension Neurology: History of: Dementia, Parkinson's Disease, TIA HEENT: History of: Ear Problem, Eye Problem, Glaucoma Genitourinary: History of: Prostate Problems (Prostate Enlargement) - Surgical History Abdominal Surgeries: Surgical HX of: Cholecystectomy, Hernia Repair - Family History Family History: Reports;: Family Cancer, Family Heart Disease, Family Hypertension - Social History Smoking Status: Never smoker Frequency of Alcohol Use: None Type of Drug Use: None Marital Status: Lives With:: Spouse Functional capacity: uses cane/walker ROS unobtainable: due to dementia Exam - Constitutional Vitals: Period Temp Pulse Resp BP Sys/Dozier Pulse Ox Last 24 Hr 97.4 F-97.4 F 70-110 16-20 140-183/61-87 96-100 Exam: General appearance: normal weight, no acute distress - Head Head exam: Present: normocephalic, atraumatic - Eye Eye exam: Present: EOMI. Absent: conjunctival injection, nystagmus Pupils: Present: NADER, normal accommodation - ENT ENT exam: Present: normal exam, normal external ear exam - Neck Neck exam: Present: normal inspection. Absent: lymphadenopathy, tenderness, thyromegaly - Respiratory Respiratory exam: Present: clear to auscultation bilaterally. Absent: rales, rhonchi, wheezes - Cardiovascular Cardiovascular exam: Present: regular rate and rhythm. Absent: carotid bruit, gallop, rubs - GI/Abdominal GI/Abdominal exam: Present: normal bowel sounds. Absent: ascites, distended, mass - Extremities Exam Extremities exam: Present: normal inspection, normal capillary refill. Absent: edema - Back Exam Back exam: Absent: CVA tenderness (L), CVA tenderness (R) - Neurological Exam Neurological exam: Unable to assess due to mental status - Psychiatric Psychiatric exam: Unable to assess due to mental status - Skin Skin exam: Present: normal color, warm, dry Results - Labs CBC & BMP: 01/22/17 14:41 01/22/17 14:41 Lab Results: I have reviewed the past 24 hour labs - Diagnostic Findings Procedure: CT: image reviewed by me, report reviewed by me (Head: No intracranial abnormalities)
[2017-01-22] MEDS ORDERED: LACTULOSE 20 GM/30 ML UDCUP PO PRN (19:11)
[2017-01-22] MEDS: SODIUM CHLORIDE 0.9% 1,000 ML IV SCH (20:22)
[2017-01-22] MEDS: LEVOFLOXACIN INJ 500 MG in PREMIX 1 EACH IV SCH (21:26)
[2017-01-22] MEDS: QUEtiapine 25 MG TABLET PO SCH (21:26)
[2017-01-23 04:17] LABS: Basophils # 0.1 10*3/uL (0.0-0.2); Basophils % 0.5 % (0.0-0.8); Eosinophils % 17.5 % (0.00-10.9); Hematocrit 36.2 VOL% (42.0-52.0); Hemoglobin 12.4 GM/DL (14.0-18.0); Immature Granulocytes % 0.3 %; Immature Granulocytes Absolute 0.04 #; Lymphocytes % 17.6 % (21.2-54.2); Mean Corpuscular HGB Conc 34.3 GM/DL (32-36); Mean Corpuscular Hemoglobin 32 PG (27-34); Mean Corpuscular Volume 92.6 FL (87-102); Mean Platelet Volume 9.8 FL (9.6-12.0); Monocytes # 0.9 10*3/uL (0.11-0.8); Monocytes % 7.8 % (1.7-12.7); Neutrophils # 6.5 10*3/uL (1.4-7.4); Neutrophils % 56.3 % (38.7-73.9); Platelet Count 128 T/CUMM (130-400); Red Blood Count 3.91 MC/CUMM (3.8-5.5); Red Cell Distribution Width 13.1 % (9.3-17.3); White Blood Count 11.5 T/CUMM (4-12)
[2017-01-23 04:42] LABS: Calcium 8.4 MG/DL (8.5-10.1); Osmolality,Calculated 286.8 MOS/KG (273-304); Potassium 3.8 MMOL/L (3.5-5.1)
[2017-01-23 04:58] LABS: Eosinophils 16 % (0-10); Lymphocytes 15 % (20-55); Platelet Estimate Normal; Segmented Neutrophils 65 % (50-85); Total Cells Counted 100
[2017-01-23] MEDS: HALOPERIDOL 5 MG/ML AMP IV PRN ×2 (05:40→23:08)
[2017-01-23] MEDS ORDERED: TUBERCULIN SKIN TEST 0.1 ML SYRINGE INTRADERM ONE (06:00)
--- NOTE | 2017-01-23 07:11 | EKG Report ---
Stationary ECG Study [facility] Test Date: 01/22/2017 3:20:53 PM Pat Name: PHILLIP WAGONER Department: Room: 224 Gender: M Gut Puller: : 1925 Requested by: Robb Velazquez Order Number: [id number] Reading MD: CHUCK PAUL Intervals [place] Rate: 82 P: 82 MT: 183 QRS: -61 QRSD: 93 T: 18 QT: 377 QTc: 416 Interpretive Statements SINUS RHYTHM LEFT ANTERIOR FASCICULAR BLOCK MODERATE ST DEPRESSION Electronically Signed On 01-23-17 15:46:24 CDT by CHUCK PAUL [email or web address]
[2017-01-23] MEDS: QUEtiapine 25 MG TABLET PO SCH ×2 (08:26→22:07)
[2017-01-23] MEDS ORDERED: LORazepam 1 MG TABLET PO PRN (08:55)
--- NOTE | 2017-01-23 09:13 | Hospitalist Progress Note ---
Assessment and Plan (1) UTI (urinary tract infection) Status: Acute Assessment and plan: He was begun on treatment with intravenous levofloxacin last night. Urine cultures are pending. Current Visit: Yes Qualifiers: Urinary tract infection type: site unspecified Hematuria presence: without hematuria Qualified Code(s): N39.0 - Urinary tract infection, site not specified (2) Altered mental status Status: Acute Assessment and plan: His agitation has resolved. His states that he has returned to his baseline mental status which is that of severe dementia. Current Visit: No Qualifiers: Altered mental status type: delirium Qualified Code(s): R41.0 - Disorientation, unspecified (3) Parkinsons disease Status: Acute Assessment and plan: He continues on his previous medications. 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 He is status post an intracranial hemorrhage secondary to trauma 6 weeks prior to admission. He has been evaluated by neurosurgery at [facility] at that time and was treated with rehabilitation therapy. He remains very weak and continues to experience frequent falls. He was hospitalized here yesterday with altered mental status and severe agitation. Evaluation in the emergency department demonstrated him to have a urinary tract infection for which he was begun on intravenous antibiotics. He was found to be dehydrated with acute renal failure and begun on intravenous sodium chloride 0.9% infusion. His states that he passed an uneventful evening and that his agitation has resolved. Exam - Constitutional Vitals: Period Temp Pulse Resp BP Sys/Dozier Pulse Ox Last 24 Hr 97.1 F-97.5 F 68-110 16-22 118-183/61-87 94-100 General appearance: no acute distress - Head Head exam: Present: normal inspection - Neck Neck exam: Present: normal inspection - Respiratory Respiratory exam: Present: clear to auscultation bilaterally - Cardiovascular Cardiovascular exam: Present: regular rate and rhythm - GI/Abdominal GI/Abdominal exam: Present: normal bowel sounds, soft, other (Nontender with no palpable masses or hepatosplenomegaly.) - Extremities Exam Extremities exam: Present: normal inspection - Neurological Exam Neurological exam: Present: other (Arousable.) - Skin Skin exam: Present: normal color, warm, intact Results - Labs CBC & BMP: 01/23/17 03:35 01/23/17 03:35
[2017-01-23] MEDS: CARBIDOPA/LEVODOPA 25-100 MG TABLET PO SCH ×3 (09:21→22:07)
[2017-01-23] MEDS: FINASTERIDE 5 MG TABLET PO SCH (09:21)
[2017-01-23] MEDS: SODIUM CHLORIDE 0.9% 1,000 ML IV SCH (09:28)
[2017-01-23] MEDS: TIMOLOL 0.5% OPH SOLN 5 ML BOTTLE BOTH EYES SCH ×2 (11:10→22:06)
[2017-01-23] MEDS ORDERED: TEMAZEPAM 15 MG CAPSULE PO SCH (21:00)
[2017-01-23] MEDS ORDERED: TRAVOPROST 0.004% OPH SOLN 2.5 ML BOTTLE BOTH EYES SCH (21:00)
[2017-01-23] MEDS: LEVOFLOXACIN INJ 500 MG in PREMIX 1 EACH IV SCH (22:06)
[2017-01-24] MEDS: SODIUM CHLORIDE 0.9% 1,000 ML IV SCH (06:37)
[2017-01-24 06:43] LABS: Basophils # 0.1 10*3/uL (0.0-0.2); Basophils % 0.5 % (0.0-0.8); Eosinophils # 1.7 10*3/uL (0.0-0.87); Hematocrit 38.9 VOL% (42.0-52.0); Hemoglobin 13.4 GM/DL (14.0-18.0); Immature Granulocytes % 0.3 %; Immature Granulocytes Absolute 0.04 #; Lymphocytes # 2.2 10*3/uL (1.4-4.0); Mean Corpuscular HGB Conc 34.4 GM/DL (32-36); Mean Corpuscular Hemoglobin 32 PG (27-34); Mean Corpuscular Volume 91.3 FL (87-102); Mean Platelet Volume 10.4 FL (9.6-12.0); Monocytes # 0.9 10*3/uL (0.11-0.8); Monocytes % 7.5 % (1.7-12.7); Neutrophils # 6.6 10*3/uL (1.4-7.4); Neutrophils % 57.7 % (38.7-73.9); Platelet Count 146 T/CUMM (130-400); Red Blood Count 4.26 MC/CUMM (3.8-5.5); Red Cell Distribution Width 12.9 % (9.3-17.3); White Blood Count 11.5 T/CUMM (4-12)
[2017-01-24 07:04] LABS: Calcium 8.3 MG/DL (8.5-10.1); Osmolality,Calculated 277.4 MOS/KG (273-304); Potassium 4.2 MMOL/L (3.5-5.1)
[2017-01-24 07:52] LABS: Eosinophils 10 % (0-10); Lymphocytes 15 % (20-55); Platelet Estimate Normal; Segmented Neutrophils 66 % (50-85); Total Cells Counted 100
[2017-01-24 07:53] LABS: Giant Platelets Few; Hypochromasia 1+
[2017-01-24] MEDS: FINASTERIDE 5 MG TABLET PO SCH (09:49)
[2017-01-24] MEDS: QUEtiapine XR 50 MG TABLET PO SCH ×2 (09:49→13:33)
[2017-01-24] MEDS: CARBIDOPA/LEVODOPA 25-100 MG TABLET PO SCH (09:50)
[2017-01-24] MEDS: TIMOLOL 0.5% OPH SOLN 5 ML BOTTLE BOTH EYES SCH (09:51)
--- NOTE | 2017-01-24 11:34 | Discharge Summary ---
Hospital Course - Hospital Course Hospital Course: 89-year-old white male with history of Parkinson's dementia and brain bleed 6 weeks ago and made by the hospitalist service on 01/22/2017 with altered mental status and a fall due to UTI. Patient was started on antibiotics and he is back to his baseline. There was discussion with the family about intermediate placement but they are refusing that at this time. They are taking patient back home with hospice for now. Patient will be discharged home on 1 week of Levaquin for his urinary tract infection. Complete discharge instructions were given to the and son in the room. Care coordination, chart review, completed discharge paperwork took approximately 32 minutes. - Time spent with patient Time with patient DS: Greater than 30 minutes Diagnosis - Discharge Diagnosis (1) Parkinson's disease dementia Status: Chronic (2) Altered mental status Status: Resolved (3) Fall Status: Resolved Discharge Plan - Discharge Data Disposition: Hospice - Home Condition at Discharge: Stable Discharge Diet: advance to your usual diet Activity: resume usual activities as tolerated Hygiene: may shower Contact your physician if you experience:: fever over 101 - Discharge Medications New levoFLOXacin [Levaquin Liquid] 500 mg PO DAILY #70 ml Continue Timolol 0.5% Oph Soln [Timoptic 0.5%] 1 drop BOTH EYES BID Carbidopa/Levodopa 25-100 [Sinemet 25-100] 2 tablet PO TID Travoprost 0.004% Oph Soln [Travatan Z] 1 drop BOTH EYES BEDTIME QUEtiapine XR [SEROquel XR] 2 tablet PO DAILY Finasteride 5 mg PO DAILY Temazepam 15 mg PO BEDTIME LORazepam [Lorazepam] 1 mg PO Q6HR PRN PRN Reason: Agitation - Follow Up or Referral Follow Up: your,pcp [Other] - 2 Weeks (w repeat UA ) - Forms/Instructions Exam - Constitutional Vitals: Period Temp Pulse Resp BP Sys/Dozier Pulse Ox Last 24 Hr 97.4 F-99.2 F 68-77 16-20 100-177/50-90 91-100 Exam: 89-year-old white male, no acute distress, sleepy but arousable Chest clear CV regular rate and rhythm Abdomen soft and nontender Extremities no edema Discharge Results Procedures and tests throughout hospitalization: Pending Orders 01/22/17 Urine Culture Routine Labs on day of discharge: Labs from last 24 hours 01/24/17 01/24/17 04:39 04:39 WBC 11.5 RBC 4.26 Hgb 13.4 L Hct 38.9 L MCV 91.3 MCH 32 MCHC 34.4 RDW 12.9 Plt Count 146 MPV 10.4 Neut % (Auto) 57.7 Lymph % (Auto) 19.0 L Wells % (Auto) 7.5 Eos % (Auto) 15.0 H Baso % (Auto) 0.5 Neut # (Auto) 6.6 Lymph # (Auto) 2.2 Wells # (Auto) 0.9 H Eos # (Auto) 1.7 H Baso # (Auto) 0.1 Total Counted 100 Immature Gran % 0.3 Nucleated RBC % 0.0 Immature Gran # 0.04 Segmented Neutrophils 66 Lymphocytes 15 L Monocytes 9 Eosinophils 10 Nucleated RBCs # 0.00 Platelet Estimate Normal Giant Platelets Few Immature Plt Fraction 0.0 Hypochromasia 1+ Sodium 140 Potassium 4.2 Chloride 104 Carbon Dioxide 27 Anion Gap 13.2 BUN 13 Creatinine 0.80 GFR Calculation 73 BUN/Creatinine Ratio 16.00 Glucose 72 L Calculated Osmolality 277.4 Calcium 8.3 L Preliminary micro results at discharge 01/22/17 Unknown Urine Culture - Preliminary Urine,Catheterized Gram Positive Cocci DS: Provider Date of admission: 01/22/17 17:59 Primary care physician: Wendy Richey, Attending physician on admission: Annamarie Ramos MD Consults: 01/22/17 19:14 Consult to Case Mgmt/Social Srvs [CONS] Routine Reason for Case Mgmt/Social Srvs: Discharge Planning Swingbed/SNF/Assisted Consult Comment: RE ADMIT [facility] Discharging clinician: REE Landis Expected date of discharge: 01/24/17
[2017-01-24 13:51] VITALS: BP 148/74
== END 2017-01-24 14:33 | disposition hospice, home (50) ==
LOC: EDBD → EDUNIT# → N.2E 14:24 → N.ED 14:24 → SUATTDRO 17:59 → N.2E 19:52
PROVIDERS: ADMIT Family Medicine; ATTEND Hospitalist